=== PATIENT | female | born 1945 | race Caucasian/White ===

== ENCOUNTER → 2017-06-26 | Outpatient (CLI) | payer OTHER, BC ==
[~2017-06-26] MED LIST: AMLODIPINE BESY10 MG PO; AMLODIPINE BESYL5 MG PO; ARIMIDEX1 MG PO; ASPIR 8181 M1 PO; ASPIR-LOW81 MG PO; BENAZEPRIL HCL20 MG PO; BENAZEPRIL HCL40 MG PO; CLARITIN,ALAVAR10 MG PO; CLINDAMYCIN PO; COLACE100 MG PO; GLUCOPHAGE1000 MG PO; HYDROCODON-ACE1 EAC7 PO; HYDROCODON-ACE1 EAC9 PO; JANUMET 50/11 TABLET PO; JANUMET XR 50-1 EAC1 PO; JANUVIA100 MG PO; LEVOFLOXACIN500 MG PO; LOTENSIN20 MG PO; LOTENSIN40 MG PO; MELOXICAM15 MG PO; METFORMIN HCL1000 MG PO; NEURONTIN100 MG PO; PRAVASTATIN SOD20 MG PO; PRAVASTATIN SOD40 MG PO; PROBIOTIC250 MG PO; ROXICODONE5 MG PO; SILVADENE20 GM TP; VITAMIN D2000 INTUN PO; VITAMIN D400 UNI1 PO
== END | disposition home or self-care (01) ==
LOC: AMB 06-19 11:30
DX: Z45.2 Encounter for adjustment and management of vascular access device (principal); I87.8 Other specified disorders of veins